=== PATIENT | female | born 1970 | race Caucasian/White ===

== ENCOUNTER 2022-06-02 13:14 | Observation (INO) ==
[2022-06-02 16:06] LABS: Basophils % 0.3 % (0.0-0.8); Eosinophils % 0.1 % (0.00-10.9); Hemoglobin 13.9 GM/DL (12.0-16.0); Lymphocytes # 1.2 10*3/uL (1.4-4.0); Lymphocytes % 13.9 % (21.3-54.2); Mean Corpuscular HGB Conc 31.6 GM/DL (32-36); Mean Corpuscular Volume 86.1 FL (87-102); Mean Platelet Volume 11.4 FL (9.6-12.0); Monocytes # 0.3 10*3/uL (0.11-0.8); Monocytes % 3.4 % (1.7-12.7); Neutrophils % 81.7 % (38.7-73.9); Platelet Count 169 T/CUMM (130-400); Red Blood Count 5.11 MC/CUMM (3.8-5.5); Red Cell Distribution Width 14.9 % (9.3-17.3); White Blood Count 8.9 T/CUMM (4-12)
[2022-06-02] MEDS ORDERED: ACETAMINOPHEN 500 MG TABLET PO STA (16:49)
[2022-06-02] MEDS ORDERED: DICYCLOMINE 20 MG TABLET PO STA (16:50)
[2022-06-02 17:16] LABS: Albumin 3.6 G/DL (3.4-5.0); Bilirubin,Total 0.5 MG/DL (0.20-1.00); Calcium 8.8 MG/DL (8.5-10.1); Osmolality,Calculated 273.8 MOS/KG (273-304); Potassium 3.8 MMOL/L (3.5-5.1); Total Protein 8.5 G/DL (6.4-8.2)
[2022-06-02] MEDS ORDERED: hydrALAZINE 20 MG/1 ML VIAL IV STA (18:10)
[2022-06-02] MEDS ORDERED: ONDANSETRON 4 MG/2 ML VIAL ONE (19:00)
[2022-06-02] MEDS ORDERED: ONDANSETRON 4 MG/2 ML VIAL IV ONE (19:04)
[2022-06-02] MEDS ORDERED: fentaNYL 100 MCG/2 ML VIAL IV STA (19:05)
[2022-06-02] MEDS ORDERED: ONDANSETRON 4 MG/2 ML VIAL IV PRN (19:39)
[2022-06-02] MEDS: SODIUM CHLORIDE 0.9% 1,000 ML IV SCH (21:15)
[2022-06-02] MEDS: metroNIDAZOLE INJ 500 MG/100 ML PREMIX IV SCH (21:39)
[2022-06-02] MEDS: PANTOPRAZOLE 40 MG VIAL IV SCH (21:54)
[2022-06-02 22:07] LABS: Hematocrit 49.1 VOL% (35.7-47.0); Hemoglobin 15.2 GM/DL (12.0-16.0)
[2022-06-02] MEDS: cefTRIAXone 1,000 MG in SODIUM CHLORIDE 0.9% 100 ML IV SCH (22:51)
[2022-06-03] MEDS: HYDROmorphone 1 MG/1 ML SYRINGE IV PRN ×2 (02:04→08:34)
[2022-06-03 02:17] LABS: Hematocrit 39.9 VOL% (35.7-47.0); Hemoglobin 12.9 GM/DL (12.0-16.0)
[2022-06-03 02:47] LABS: Bilirubin,Direct 0.1 MG/DL (0.0-0.20); Bilirubin,Indirect 0.3 MG/DL (0.0-1.0); Bilirubin,Total 0.4 MG/DL (0.20-1.00); Calcium 8.1 MG/DL (8.5-10.1); Osmolality,Calculated 279.5 MOS/KG (273-304); Potassium 3.6 MMOL/L (3.5-5.1); Thyroid Stimulating Hormone 1.09 uIU/ml (0.358-3.74); Total Protein 7.1 G/DL (6.4-8.2)
[2022-06-03] MEDS: metroNIDAZOLE INJ 500 MG/100 ML PREMIX IV SCH ×3 (04:09→20:28)
[2022-06-03 05:47] LABS: Basophils % 0.3 % (0.0-0.8); Eosinophils % 0.1 % (0.00-10.9); Hematocrit 38.2 VOL% (35.7-47.0); Hemoglobin 12.3 GM/DL (12.0-16.0); Immature Granulocytes % 0.6 %; Immature Granulocytes Absolute 0.05 #; Lymphocytes # 1.8 10*3/uL (1.4-4.0); Lymphocytes % 20.6 % (21.3-54.2); Mean Corpuscular HGB Conc 32.2 GM/DL (32-36); Mean Corpuscular Volume 84.7 FL (87-102); Mean Platelet Volume 10.2 FL (9.6-12.0); Monocytes # 0.6 10*3/uL (0.11-0.8); Monocytes % 7.2 % (1.7-12.7); Neutrophils % 71.2 % (38.7-73.9); Platelet Count 208 T/CUMM (130-400); Red Blood Count 4.51 MC/CUMM (3.8-5.5); Red Cell Distribution Width 13.7 % (9.3-17.3); White Blood Count 8.8 T/CUMM (4-12)
[2022-06-03 07:37] LABS: Hematocrit 39.6 VOL% (35.7-47.0); Hemoglobin 12.5 GM/DL (12.0-16.0)
[2022-06-03 08:25] LABS: Atypical Lymphocytes Few; Band Neutrophils 3 % (0-10); Lymphocytes 23 % (20-55); Platelet Estimate Normal; Total Cells Counted 100
[2022-06-03 08:26] LABS: Anisocytosis 1+; Macrocytosis Slight
[2022-06-03] MEDS: SODIUM CHLORIDE 0.9% 1,000 ML IV SCH ×3 (08:29→22:45)
[2022-06-03] MEDS: PANTOPRAZOLE 40 MG VIAL IV SCH ×2 (08:33→20:27)
[2022-06-03] MEDS ORDERED: MAGNESIUM SULF RIDER 2 GM/50 ML PREMIX IV ONE (08:52)
[2022-06-03] MEDS ORDERED: amLODIPine 10 MG TABLET PO SCH (09:00)
[2022-06-03] MEDS: amLODIPine 10 MG TABLET PO SCH (10:21)
[2022-06-03] MEDS: cefTRIAXone 1,000 MG in SODIUM CHLORIDE 0.9% 100 ML IV SCH (22:12)
[2022-06-04] MEDS: metroNIDAZOLE INJ 500 MG/100 ML PREMIX IV SCH ×3 (03:27→21:00)
[2022-06-04 06:15] LABS: Basophils % 0.5 % (0.0-0.8); Eosinophils # 0.2 10*3/uL (0.0-0.87); Eosinophils % 2.4 % (0.00-10.9); Hematocrit 36.9 VOL% (35.7-47.0); Hemoglobin 11.5 GM/DL (12.0-16.0); Immature Granulocytes % 0.7 %; Immature Granulocytes Absolute 0.05 #; Lymphocytes # 1.9 10*3/uL (1.4-4.0); Lymphocytes % 24.8 % (21.3-54.2); Mean Corpuscular HGB Conc 31.2 GM/DL (32-36); Mean Corpuscular Volume 87.4 FL (87-102); Mean Platelet Volume 10.3 FL (9.6-12.0); Monocytes # 0.6 10*3/uL (0.11-0.8); Monocytes % 7.2 % (1.7-12.7); Neutrophils % 64.4 % (38.7-73.9); Platelet Count 201 T/CUMM (130-400); Red Blood Count 4.22 MC/CUMM (3.8-5.5); Red Cell Distribution Width 14.3 % (9.3-17.3); White Blood Count 7.6 T/CUMM (4-12)
[2022-06-04 06:31] LABS: Calcium 7.7 MG/DL (8.5-10.1); Osmolality,Calculated 282.1 MOS/KG (273-304); Potassium 3.7 MMOL/L (3.5-5.1)
[2022-06-04] MEDS: SODIUM CHLORIDE 0.9% 1,000 ML IV SCH ×3 (07:00→23:28)
[2022-06-04] MEDS: amLODIPine 10 MG TABLET PO SCH (08:27)
[2022-06-04] MEDS: PANTOPRAZOLE 40 MG VIAL IV SCH ×2 (08:27→20:21)
[2022-06-04 08:34] LABS: Anisocytosis Slight; Band Neutrophils 1 % (0-10); Eosinophils 4 % (0-10); Lymphocytes 28 % (20-55); Macrocytosis Slight; Platelet Estimate Normal; Total Cells Counted 100
[2022-06-04] MEDS: cefTRIAXone 1,000 MG in SODIUM CHLORIDE 0.9% 100 ML IV SCH (20:19)
[2022-06-04] MEDS: CALCIUM (CARBONATE)/VITAMIN D 600 MG-400 UNIT TABLET PO SCH (20:21)
[2022-06-05] MEDS: SODIUM CHLORIDE 0.9% 1,000 ML IV SCH ×2 (02:14→10:45)
[2022-06-05] MEDS: metroNIDAZOLE INJ 500 MG/100 ML PREMIX IV SCH ×3 (04:18→21:12)
[2022-06-05 05:33] LABS: Basophils % 0.6 % (0.0-0.8); Eosinophils # 0.2 10*3/uL (0.0-0.87); Eosinophils % 3.1 % (0.00-10.9); Hemoglobin 11.1 GM/DL (12.0-16.0); Immature Granulocytes % 0.6 %; Immature Granulocytes Absolute 0.04 #; Lymphocytes % 29.2 % (21.3-54.2); Mean Corpuscular HGB Conc 31.7 GM/DL (32-36); Mean Corpuscular Volume 85.8 FL (87-102); Mean Platelet Volume 9.9 FL (9.6-12.0); Monocytes # 0.6 10*3/uL (0.11-0.8); Monocytes % 8.5 % (1.7-12.7); Platelet Count 202 T/CUMM (130-400); Red Blood Count 4.08 MC/CUMM (3.8-5.5); Red Cell Distribution Width 13.9 % (9.3-17.3); White Blood Count 6.7 T/CUMM (4-12)
[2022-06-05 05:58] LABS: Calcium 7.9 MG/DL (8.5-10.1); Potassium 3.5 MMOL/L (3.5-5.1)
[2022-06-05] MEDS: amLODIPine 10 MG TABLET PO SCH (09:31)
[2022-06-05] MEDS: CALCIUM (CARBONATE)/VITAMIN D 600 MG-400 UNIT TABLET PO SCH ×2 (09:31→21:13)
[2022-06-05] MEDS: PANTOPRAZOLE 40 MG VIAL IV SCH ×2 (09:31→21:14)
[2022-06-05] MEDS: cefTRIAXone 1,000 MG in SODIUM CHLORIDE 0.9% 100 ML IV SCH (21:13)
[2022-06-06] MEDS: SODIUM CHLORIDE 0.9% 1,000 ML IV SCH ×2 (03:23→09:08)
[2022-06-06] MEDS: metroNIDAZOLE INJ 500 MG/100 ML PREMIX IV SCH (04:54)
[2022-06-06 05:54] LABS: Basophils % 0.7 % (0.0-0.8); Eosinophils # 0.3 10*3/uL (0.0-0.87); Eosinophils % 5.5 % (0.00-10.9); Hematocrit 35.7 VOL% (35.7-47.0); Hemoglobin 11.2 GM/DL (12.0-16.0); Immature Granulocytes % 0.5 %; Immature Granulocytes Absolute 0.03 #; Lymphocytes # 1.5 10*3/uL (1.4-4.0); Lymphocytes % 23.8 % (21.3-54.2); Mean Corpuscular HGB Conc 31.4 GM/DL (32-36); Mean Platelet Volume 10.2 FL (9.6-12.0); Monocytes # 0.6 10*3/uL (0.11-0.8); Monocytes % 9.6 % (1.7-12.7); Neutrophils % 59.9 % (38.7-73.9); Platelet Count 214 T/CUMM (130-400); Red Blood Count 4.15 MC/CUMM (3.8-5.5); Red Cell Distribution Width 13.9 % (9.3-17.3); White Blood Count 6.1 T/CUMM (4-12)
[2022-06-06 06:28] LABS: Calcium 8.1 MG/DL (8.5-10.1); Osmolality,Calculated 281.1 MOS/KG (273-304); Potassium 3.6 MMOL/L (3.5-5.1)
[2022-06-06] MEDS: PANTOPRAZOLE 40 MG VIAL IV SCH (08:29)
[2022-06-06] MEDS: amLODIPine 10 MG TABLET PO SCH (08:29)
[2022-06-06] MEDS: CALCIUM (CARBONATE)/VITAMIN D 600 MG-400 UNIT TABLET PO SCH (08:29)
[2022-06-06] MEDS ORDERED: MAGNESIUM SULF RIDER 2 GM/50 ML PREMIX IV ONE (09:00)
[2022-06-06 12:31] VITALS: BP 153/87
== END 2022-06-06 12:44 | disposition home or self-care (01) ==
LOC: N.EDINP 13:14 → N.ED 13:14 → SUATTDRO 20:04 → N.2E 20:21
PROVIDERS: ADMIT Internal Medicine; ATTEND Emergency Medicine